=== PATIENT | male | born 1945 | race Caucasian/White ===

== ENCOUNTER 2017-02-13 09:28 | Emergency (ER) | payer OTHER, MEDICARE ==
[~2017-02-13] VITALS: Ht 177.8 cm; Wt 95.0 kg
[~2017-02-13 09:28] MED LIST: LISI2.5T5 PO; LORA-741 PO; LOSA1TAB PO; OMEP40CA PO; OXYC1TAB3 PO; SITA25TA PO; SYMIN/8045 INH; TIOTCAP INH; ZNTT/150 PO
[2017-02-13 09:36] VITALS: Ht 177.8 cm; Wt 95.0 kg
[2017-02-13] MEDS ORDERED: HYDROmorphone INJ 1 MG/ML SYR IV STA ×4 (10:04→13:44)
[2017-02-13 10:28] VITALS: O2SAT 95
[2017-02-13 10:38] LABS: BASO % 0.5 %; BASO ABS # 0.07 K/uL (0-0.2); COMPLETE YES; EOS % 2.8 %; HEMATOCRIT 40.3 % (42-52); IG% 0.5 %; LYMPH % 7.7 %; LYMPH ABS # 1.08 K/uL (1.2-3.4); MEAN CELL VOLUME 92.6 fL (80-100); MEAN CORPUSCULAR HEMOGLOBIN 32.9 pg (25-34); MEAN CORPUSCULAR HGB CONC 35.5 g/dl (32-36); MEAN PLATELET VOLUME 10.6 fL (7.4-10.4); MONO % 9.1 %; NEUT % 79.4 %; PLATELET COUNT 285 K/uL (130-400); RED BLOOD COUNT 4.35 M/uL (4.7-6.1); WHITE BLOOD COUNT 14.08 K/uL (4.8-10.8)
[2017-02-13] MEDS ORDERED: OMEP40CA41 PO (10:40)
[2017-02-13] MEDS ORDERED: ATV/1 PO (10:40)
[2017-02-13] MEDS ORDERED: SPRIN/30 INH (10:40)
[2017-02-13 10:48] LABS: PROTHROMBIN TIME (PATIENT) 10.6 SECONDS (9.0-12.0)
[2017-02-13 10:58] LABS: BUN/CREATININE RATIO 14.5 (10-20); CALCIUM 9.4 mg/dl (8.5-10.1); CREATININE 2.44 mg/dl (0.60-1.40)
[2017-02-13] MEDS ORDERED: AMLO-342 PO (10:58)
[2017-02-13 11:01] LABS: ALB/GLOB RATIO 0.9 (0.9-2)
[2017-02-13] MEDS ORDERED: DIAZEPAM INJ 5 MG/ML 2 ML CARP IV STA (11:23)
[2017-02-13] MEDS ORDERED: DEXAMETHASONE INJ 10 MG in SYRINGE 0 ML IV ONE (11:30)
[2017-02-13] MEDS ORDERED: DEXAMETHASONE **PF** INJ 10 MG/ML VIAL ONE (11:35)
--- NOTE | 2017-02-13 13:14 | EMERGENCY ROOM VISIT NOTE ---
History First contact with patient: 09:53 Chief Complaint: BACK PAIN Stated Complaint: LEG PAIN History of Present Illness Patient is a 71-year-old white male brought to the emergency department via ALS ambulance from [facility] for evaluation of severe left leg pain that began acutely this morning. Patient underwent an L3 through S1 laminectomy at [facility] on 02/02. He was discharged on 02/04. The patient's reports that this severe left leg pain started immediately postoperatively, and his surgeon was unaware of it. Patient and his both deny that he had left leg symptoms prior to the surgery, however documentation that accompanies him from [facility] reports that he did have lumbar radicular symptoms preoperatively. The patient was home for 2 days, then presented to [facility] with increasing back pain and bilateral lower leg pain and swelling. He was transferred to [facility]. He had an extensive workup including Dopplers of the lower extremities which were negative for DVT. He apparently had a CT scan which showed a left flank contusion, no evidence for fluid collection. He was referred to rehabilitation as he was unable to be discharged to home to care for himself. He arrived at [facility] on 02/11. Patient reportedly was able to do physical therapy yesterday, and walked to 200 feet per the . He had sudden onset of very severe left upper leg pain and burning this morning. It radiates to his low back, into his groin and down to his foot. He was given oxycodone 2 and Flexeril without relief. Ambulance was then summoned. He received 150 g of fentanyl en route, also with no relief. The patient rates his discomfort a 10/10. It is located in his left buttock, left groin and his entire left leg. He denies any numbness or tingling. He denies any bowel or bladder incontinence. He reports that he is urinating well and moving his bowels. He has been eating and drinking without difficulty. He denies any chest pain, palpitations or shortness of breath. No fever or chills. Review of Systems Review of systems as per HPI. All other systems reviewed were negative. 10 systems reviewed. Past Medical/Surgical History Medical Problems: (1) Anxiety and depression (2) Asthma (3) Chest pain (4) Chronic low back pain (5) COPD (chronic obstructive pulmonary disease) (6) Dehydration (7) Diabetes (8) Dyslipidemia (9) GERD (gastroesophageal reflux disease) (10) Headache (11) Hiatal hernia (12) Hyperglycemia (13) Hypertension Surgical Problems: (1) History of lumbar laminectomy Electronic medical records are reviewed and summarized as above/below. See Problem List. Family History Diabetes mellitus Hypertension Lung disease Social History Smoking Status: Former Smoker Alcohol Use: none Drug Use: none Marital Status: Housing Status: lives with significant other Occupation Status: unemployed Current/Historical Medications Scheduled Amlodipine Besylate-Valsartan (Amlodipine Besylate/Valsa 10-160 mg), 1 TAB PO DAILY Budesonide/Formoterol Fumarate (Symbicort 80/4.5 Inhaler), 2 PUFFS INH BID Lorazepam (Ativan), 1 MG PO HS Omeprazole (Prilosec), 40 MG PO DAILY Ranitidine (Zantac), 150 MG PO DAILY Sitagliptin (Januvia), Unknown Dose PO DAILY Tiotropium [place] (Spiriva Handihaler), 1 CAP INH DAILY Scheduled PRN Oxycodone Ir (Roxicodone Ir), 10 MG PO QID PRN for Severe Pain Physical Exam Vital Signs Date Time Temp Pulse Resp B/P (MAP) Pulse Ox O2 Delivery O2 Flow Rate FiO2 02/13/17 15:31 37.0 102 22 149/77 96 Room Air 02/13/17 13:48 115 10 145/72 91 4.0 02/13/17 13:14 109 12 137/79 95 Nasal Cannula 4.0 02/13/17 11:41 80 16 104/54 95 02/13/17 10:28 95 Nasal Cannula 3.0 02/13/17 10:27 99 24 130/79 90 02/13/17 09:36 37.1 121 30 117/97 95 Room Air Physical Exam CONSTITUTIONAL: Patient is a severely uncomfortable, diaphoretic 71-year-old white male who is awake and alert and laying in the right lateral decubitus position on the gurney in severe distress due to their back pain. NECK: No bruits auscultated. Supple without lymphadenopathy. No thyromegaly. No meningeal signs. Full active range of motion without discomfort. CARDIOVASCULAR: Regular rate and rhythm. Peripheral pulses easily palpable. RESPIRATORY: Breath sounds equal and clear to auscultation without wheezes, rales, or rhonchi heard. Full and equal chest expansion without accessory muscle use or retractions. ABDOMEN: Bowel sounds are present. Abdomen is soft, nontender and nondistended. INTEGUMENTARY: No lesions or rash, normal skin turgor. LYMPH: No lymphadenopathy. SPINE: Examination of the patient's back notes a well-healing surgical incision intact with Steri-Strips. There is no erythema, increased warmth or induration. No drainage or discharge from the wound. Patient has midline discomfort to palpation over the surgical incision. He adamantly refuses to roll flat on his back. Lumbar range of motion unable to be assessed due to level of pain and cooperation. EXTREMITIES: Legs are examined while the patient is laying slightly on the right. Normal strength including dorsi-flexion and plantar flexion of the great toes and ankles. Unable to assess knee and hip range of motion. Unable to tolerate any straight leg raise testing. Lower extremity DTRs are 1 flat and symmetrical bilaterally. Distal pulses are easily palpable. Sensation light touch is intact over the lower extremities bilaterally. Calves are soft and nontender. There is no erythema, increased warmth, induration or pitting edema of the lower extremities. Medical Decision & Procedures Laboratory Results 02/13/17 10:20 Red Blood Count 4.35, Mean Corpuscular Volume 92.6, Mean Corpuscular Hemoglobin 32.9, Mean Corpuscular Hemoglobin Concent 35.5, Mean Platelet Volume 10.6, Neutrophils (%) (Auto) 79.4, Lymphocytes (%) (Auto) 7.7, Monocytes (%) (Auto) 9.1, Eosinophils (%) (Auto) 2.8, Basophils (%) (Auto) 0.5, Neutrophils # (Auto) 11.19, Lymphocytes # (Auto) 1.08, Monocytes # (Auto) 1.28, Eosinophils # (Auto) 0.39, Basophils # (Auto) 0.07 02/13/17 10:20 Test 02/13/17 10:20 02/13/17 13:14 White Blood Count 14.08 K/uL (4.8-10.8) Red Blood Count 4.35 M/uL (4.7-6.1) Hemoglobin 14.3 g/dL (14.0-18.0) Hematocrit 40.3 % (42-52) Mean Corpuscular Volume 92.6 fL (80-100) Mean Corpuscular Hemoglobin 32.9 pg (25-34) Mean Corpuscular Hemoglobin Concent 35.5 g/dl (32-36) Platelet Count 285 K/uL (130-400) Mean Platelet Volume 10.6 fL (7.4-10.4) Neutrophils (%) (Auto) 79.4 % Lymphocytes (%) (Auto) 7.7 % Monocytes (%) (Auto) 9.1 % Eosinophils (%) (Auto) 2.8 % Basophils (%) (Auto) 0.5 % Neutrophils # (Auto) 11.19 K/uL (1.4-6.5) Lymphocytes # (Auto) 1.08 K/uL (1.2-3.4) Monocytes # (Auto) 1.28 K/uL (0.11-0.59) Eosinophils # (Auto) 0.39 K/uL (0-0.5) Basophils # (Auto) 0.07 K/uL (0-0.2) RDW Standard Deviation 44.9 fL (36.4-46.3) RDW Coefficient of Variation 13.3 % (11.5-14.5) Immature Granulocyte % (Auto) 0.5 % Immature Granulocyte # (Auto) 0.07 K/uL (0.00-0.02) Erythrocyte Sedimentation Rate 38 mm/hr (0-14) Prothrombin Time 10.6 SECONDS (9.0-12.0) Prothromb Time International Ratio 1.0 (0.9-1.1) Activated Partial Thromboplast Time 24.8 SECONDS (21.0-31.0) Partial Thromboplastin Ratio 1.0 Anion Gap 12.0 mmol/L (3-11) Est Creatinine Clear Calc Drug Dose 33.1 ml/min Estimated GFR () 30.1 Estimated GFR (Non- 26.0 BUN/Creatinine Ratio 14.5 (10-20) Calcium Level 9.4 mg/dl (8.5-10.1) Total Bilirubin 0.7 mg/dl (0.2-1) Aspartate Amino Transf (AST/SGOT) 26 U/L (15-37) Alanine Aminotransferase (ALT/SGPT) 45 U/L (12-78) Alkaline Phosphatase 64 U/L (45-117) C-Reactive Protein 1.38 mg/dl (0-0.29) Total Protein 7.9 gm/dl (6.4-8.2) Albumin 3.8 gm/dl (3.4-5.0) Globulin 4.1 gm/dl (2.5-4.0) Albumin/Globulin Ratio 0.9 (0.9-2) Urine Color YELLOW Urine Appearance CLEAR (CLEAR) Urine pH 5.0 (4.5-7.5) Urine Specific [place] 1.020 (1.000-1.030) Urine Protein NEG (NEG) Urine Glucose (UA) NEG (NEG) Urine Ketones NEG (NEG) Urine Occult Blood NEG (NEG) Urine Nitrite NEG (NEG) Urine Bilirubin NEG (NEG) Urine Urobilinogen NEG (NEG) Urine Leukocyte Esterase NEG (NEG) Medications Administered Medications (Trade) Dose Ordered Sig/Jorge Route Start Time Stop Time Status Last Admin Dose Admin Hydromorphone HCl (Dilaudid Inj) 1 mg NOW STAT IV 02/13/17 10:04 02/13/17 10:05 DC 02/13/17 10:10 1 MG Hydromorphone HCl (Dilaudid Inj) 1 mg NOW STAT IV 02/13/17 10:41 02/13/17 10:42 DC 02/13/17 10:46 1 MG Hydromorphone HCl (Dilaudid Inj) 1 mg NOW STAT IV 02/13/17 11:23 02/13/17 11:26 DC 02/13/17 11:40 1 MG Diazepam (Valium Inj) 10 mg NOW STAT IV 02/13/17 11:23 02/13/17 11:26 DC 02/13/17 11:39 10 MG Dexamethasone Sodium Phosphate (Dexamethasone Inj Pf) 10 mg STK-MED ONCE .ROUTE 02/13/17 11:35 02/13/17 11:36 DC 02/13/17 11:39 10 MG Hydromorphone HCl (Dilaudid Inj) 1 mg NOW STAT IV 02/13/17 13:44 02/13/17 13:45 DC 02/13/17 13:50 1 MG ED Course The patient was seen and assessed as above. His old records were reviewed, as well as documentation that accompanies him from the rehabilitation hospital. The patient receives a total of 15 mg of oxycodone between 6 and 7:00 this morning, and received Flexeril at 8:00 this morning. He received a total of 150 g of fentanyl en route in the ambulance, all without relief. He has an IV in place. Laboratory studies were ordered including CBC with differential, sedimentation rate, CRP, CMP and coags. Urinalysis was also ordered. He was medicated with a total of Dilaudid 4 mg IV, Decadron 10 mg IV and Valium 10 mg IV. At times, the patient would appear comfortable while laying on his side and would follow sleep and begin storing, but as soon as he was awoken, he would tense up in very severe pain. He was monitored closely on the air sampling and monitoring, and remained hemodynamically stable. Laboratory studies noted a slightly elevated white count at 14,000, with left shift and bandemia noted. H&H is 14 and 40. Sedimentation rate and CRP slightly elevated at 30 and 1.38. No significant electrolyte imbalance noted. Creatinine up from baseline at 2.4. LFTs are normal. Coags are unremarkable. Urinalysis was completely clear. All laboratory and diagnostic imaging studies were reviewed with attending physician. He is in significant discomfort despite receiving multiple doses of pain medications and antispasmodics. I did review the patient with Abraham Chung PA-C with the orthopedic spine service from [facility] in [place] , who was covering for Dr. Oden. He was in agreement that MRI was indicated. This was discussed with the patient, and he was in agreement as well, however is unable to tolerate supine positioning for the MRI. Anesthesia was consulted , and due to high acuity cases in the OR and on L&D, they are unable to provide coverage for an MRI with anesthesia, and do not expect availability until later this evening or even tomorrow. This was discussed with Dr. Flores, and with the patient and his . At this point, it was felt that the patient could best be cared for at [facility] where his surgical team is located. They can evaluate him there, and determine if MRI is indicated and manage his pain. The patient was in agreement. Transfer center was used, and patient was reviewed with the orthopedic spine service, Dr. Rider and with Dr. Adams in the ED . The patient was accepted for transfer. He will go to the emergency department. Consent to transfer was obtained. Transfer paperwork was completed. The patient remained hemodynamically stable while awaiting transfer arrangements. He continued to complain of pain. His pain at the time of transfer was rated a 10/10. Differential diagnoses entertained include epidural abscess, postoperative hematoma, seroma, pseudomeningocele, acute cord compression, cauda equina syndrome, lumbar radiculopathy, postoperative pain, among others. Medical Decision See ED Course. Medication Reconcilliation Current Medication List: was personally reviewed by me Blood Pressure Screening Patient's blood pressure: Normal blood pressure Blood pressure disposition: Did not require urgent referral Impression Primary Impression: Intractable low back pain Additional Impressions: Left leg pain Status post lumbar laminectomy Departure Information Dispostion Transfer Acute Care Facility Referrals No Doctor, Assigned Forms HOME CARE DOCUMENTATION FORM, IMPORTANT VISIT INFORMATION Patient Instructions My [facility] Problem Qualifiers
[2017-02-13 13:35] LABS: URINE APPEARANCE CLEAR (CLEAR); URINE BILIRUBIN NEG (NEG); URINE COLOR YELLOW; URINE NITRITE NEG (NEG); UROBILINOGEN NEG (NEG)
[2017-02-13 13:50] LABS: MANUAL MICROSCOPIC REQUIRED? NO; REVIEW REQ? NO
--- NOTE | 2017-02-13 14:13 | EMERGENCY ROOM VISIT NOTE ---
ED Visit Note First contact with patient: 09:53 I have personally seen and evaluated the patient with the PA. I agree with the diagnosis and management decisions and have been personally involved in the case. Upon my evaluation the patient, he is lying on his right side with severe pain. His receive multiple medications including Decadron, Dilaudid, Valium. Patient is not able to change position or lie flat on his back. He was given additional pain medication. The patient was discussed with the orthopedic spine PA at [facility] who has recommended the MRI. The patient will not tolerate the MRI without conscious sedation. Anesthesia was contacted and Dr. Rasheed states they're not able to assist at this time. The patient will not tolerate MRI and this study will not be diagnostic with his current positioning. The patient will be referred back to his spine service at [facility] for definitive management. Please see Alicia Juárez PA-C's notes for further details of the history, physical and visit.
[2017-02-13 15:31] VITALS: BP 149/77; PULSE 102; TEMP 37; O2SAT 96
== END 2017-02-13 15:45 | disposition short-term general hospital (02) ==
LOC: EDBD 09:28 → C.EDA 09:29
DX: M54.5 Low back pain (principal); M79.605 Pain in left leg; Z98.890 Other specified postprocedural states; E11.9 Type 2 diabetes mellitus without complications; E78.5 Hyperlipidemia, unspecified; I10 Essential (primary) hypertension; J45.909 Unspecified asthma, uncomplicated; F41.9 Anxiety disorder, unspecified; J44.9 Chronic obstructive pulmonary disease, unspecified; K21.9 Gastro-esophageal reflux disease without esophagitis; G89.29 Other chronic pain; Z87.891 Personal history of nicotine dependence; Z79.899 Other long term (current) drug therapy; Z83.3 Family history of diabetes mellitus; Z82.49 Family history of ischemic heart disease and other diseases of the circulatory system